=== PATIENT | male | born 1965 | race Caucasian/White ===

== ENCOUNTER 2019-04-13 06:22 | Day surgery (SDC) | payer BC ==
[2019-04-12 16:19] VITALS: BMI 29.5
[~2019-04-13 06:22] MED LIST: Cyclopentolate 1% Opth Drop 2 ML BOT ONE; Fluorouracil 100 MG, Enoxaparin Sodium 25 MG, EPINEPHrine 0.3 MG in Ophthalmic Irrigati... IRR SCH; Phenylephrine 2.5% Ophth Soln 5 ML BOT ONE
[2019-04-13] MEDS ORDERED: Midazolam HCl 2 mg/2 ml Vial ONE (06:28)
[2019-04-13] MEDS ORDERED: Fentanyl 100 MCG/2 ML VIAL ONE (06:28)
[2019-04-13] MEDS ORDERED: Cyclopentolate 1% Opth Drop 2 ML BOT ONE (06:37)
[2019-04-13] MEDS ORDERED: Phenylephrine 2.5% Ophth Soln 5 ML BOT ONE (06:37)
--- NOTE | 2019-04-13 11:39 | OP ---
DATE OF PROCEDURE: 04/13/2019 PREOPERATIVE DIAGNOSIS: Rhegmatogenous retinal detachment, right eye. POSTOPERATIVE DIAGNOSIS: Rhegmatogenous retinal detachment, right eye. PROCEDURES PERFORMED: Pars plana vitrectomy and retinal detachment repair, right eye. ANESTHESIA: Local with monitored anesthesia care. PROCEDURE IN DETAIL: The patient was identified in preoperative holding area. Appropriate informed consent for the planned surgical procedure on the right side had been obtained. The patient was transported to the operative suite. Appropriate cardiopulmonary monitoring was established. Local anesthesia was obtained using retrobulbar modified Van Lint lid block using 50:50 mixture of 4% lidocaine and 0.75% bupivacaine. The patient was prepped and draped in usual sterile manner for ophthalmic surgery of right eye. Lid speculum was placed in the right eye. A 25-gauge trocar was placed in conjunctiva and sclera superotemporally, inferotemporally, and supranasally. Infusion line was placed inferotemporally. Light pipe vitreous cutter was inserted to the eye. Core vitrectomy was performed. Attention was turned to the retinal detachment temporally. Traction was removed from the horseshoe tear. Posterior drained retinotomy was created along the 10 o'clock meridian. 360 laser was placed using Endolaser delivery device, except for the area of retinal detachment. Complete air-fluid exchange was performed with 10 minutes being left for fluid to drain posteriorly. The laser barricade was completed at 360. 28% sulfur hexafluoride gas was infused into the eye. Supratemporal and supranasal sclerotomies were sutured closed. Retrobulbar Kenalog and sequential Ancef were placed. Antibiotic ointment was placed. The eye was patched and shielded. The patient was taken to the postoperative recovery unit in good condition having suffered no immediate perioperative complications. The patient was instructed to keep patch and shield on. Avoid lifting or bending. Followup appointment with Dr. Modi. Job ID: [id number]
[2019-04-13] MEDS ORDERED: Lidocaine 4% PF 5 ML AMP ONE (12:48)
[2019-04-13] MEDS ORDERED: CEFAZOLIN 1 GM VIAL ONE (12:48)
[2019-04-13] MEDS ORDERED: Lidocaine 1% PF 5 ML VIAL ONE (12:48)
[2019-04-13] MEDS ORDERED: PROPOFOL 200 MG/20 ML VIAL ONE (12:48)
[2019-04-13] MEDS ORDERED: Maxitrol 0.1% Opth Oint 3.5 GM TUBE ONE (12:48)
[2019-04-13] MEDS ORDERED: Bupivacaine 10 ML VIAL ONE (12:48)
[2019-04-13] MEDS ORDERED: Triamcinolone 40 MG/ML VIAL ONE (12:48)
== END 2019-04-13 10:05 | disposition home or self-care (01) ==
LOC: SDC 06:22
PROVIDERS: ATTEND Ophthalmology Retina Specialist
PROC: 08T43ZZ Resection of Right Vitreous, Percutaneous Approach (ICD-10-PCS; principal; 2019-04-13)
DX: H33.011 Retinal detachment with single break, right eye (principal); I10 Essential (primary) hypertension; G62.9 Polyneuropathy, unspecified; Z79.899 Other long term (current) drug therapy; Z91.018 Allergy to other foods
CPT/HCPCS: 67025; J0171; J0690; J1650; J2001; J2250; J2704; J3010; J3301; J3490; J9190